=== PATIENT | female | born 1995 | race Caucasian/White ===

== ENCOUNTER → 2016-11-14 | Outpatient (CLI) | payer MEDICAID, OTHER ==
[2016-11-14 15:07] LABS: BASO % 0.8 % (0.0-1.0); EOS # 0.1 K/mm3 (0.0-0.50); EOS % 4.3 % (0.0-3.0); LARGE UNSTAINED CELL # 0.1 K/mm3 (0.0-0.4); LARGE UNSTAINED CELL % 4.6 % (0.0-4.0); LYMPH # 1.2 K/mm3 (1.5-6.5); LYMPH % 41.1 % (24.0-44.0); MEAN CORPUSCULAR HEMOGLOBIN 32.1 pg (27.0-33.0); MEAN CORPUSCULAR HGB CONC 33.6 g/dl (32.0-36.5); MEAN CORPUSCULAR VOLUME 95.6 fl (80.0-96.0); MONO # 0.2 K/mm3 (0.0-0.8); MONO % 8.2 % (0.0-5.0); NEUTROPHILS # 1.2 K/mm3 (1.8-7.7); NEUTROPHILS % 41.1 % (36.0-66.0); PLATELET COUNT, AUTOMATED 216 k/mm3 (150-450); RED CELL DISTRIBUTION WIDTH 12.7 % (11.5-14.5)
[2016-11-14 15:10] LABS: ALBUMIN 3.6 GM/DL (3.2-5.2); ALBUMIN/GLOBULIN RATIO 1.38 (1.00-1.93); ALKALINE PHOSPHATASE 113 U/L (45-117); ALT/SGPT 42 U/L (12-78); ANION GAP 9 MEQ/L (8-16); AST/SGOT 26 U/L (15-37); BILIRUBIN,TOTAL 0.2 MG/DL (0.2-1.0); BLOOD UREA NITROGEN 20 MG/DL (7-18); CALCIUM LEVEL 8.2 MG/DL (8.5-10.1); CARBON DIOXIDE LEVEL 25 MEQ/L (21-32); CHLORIDE LEVEL 106 MEQ/L (98-107); CREATININE FOR GFR 0.78 MG/DL (0.55-1.02); GLOMERULAR FILTRATION RATE > 60.0 (>60); GLUCOSE, FASTING 94 MG/DL (70-105); POTASSIUM SERUM 4.2 MEQ/L (3.5-5.1); SODIUM LEVEL 140 MEQ/L (136-145); TOTAL PROTEIN 6.2 GM/DL (6.4-8.2)
== END ==
LOC: M LAB 13:32
PROVIDERS: ATTEND Nurse Practitioner Family
DX: Z00.00 Encounter for general adult medical examination without abnormal findings (principal)

== ENCOUNTER → 2016-12-13 | Outpatient (REF) | payer OTHER ==
[2016-12-14 09:57] LABS: HEPATITIS B SURFACE ANTIBODY NEGATIVE (POSITIVE)
== END ==
LOC: M SFHCPLAZ 09:34
PROVIDERS: ATTEND Internal Medicine Infectious Disease
DX: B18.2 Chronic viral hepatitis C (principal)

== ENCOUNTER 2016-12-30 09:56 | Emergency (ER) | payer OTHER ==
[~2016-12-30] VITALS: Ht 162.6 cm; Wt 75.1 kg
[2016-12-30 09:57] VITALS: BP 111/59
[2016-12-30] MEDS ORDERED: SUBO2MIS PO (10:08)
== END 2016-12-30 10:45 | disposition home or self-care (01) ==
LOC: M ED 09:56
DX: S00.93XA Contusion of unspecified part of head, initial encounter (principal); W22.8XXA Striking against or struck by other objects, initial encounter; Y92.099 Unspecified place in other non-institutional residence as the place of occurrence of the external cause; Y93.9 Activity, unspecified; Y99.9 Unspecified external cause status; F41.9 Anxiety disorder, unspecified; F32.9 Major depressive disorder, single episode, unspecified; F90.9 Attention-deficit hyperactivity disorder, unspecified type; Z86.19 Personal history of other infectious and parasitic diseases; Z88.8 Allergy status to other drugs, medicaments and biological substances

== ENCOUNTER → 2017-01-17 | Outpatient (CLI) | payer OTHER ==
[~2017-01-17] MED LIST: BUPR10TASR PO; CALC500C8 PO; CELE40TA PO; GABA-283 PO; PANT40TA2; SUBO2MIS PO; ZEPATIER; implanon
[2017-01-17 10:11] LABS: ANION GAP 7 MEQ/L (8-16); BLOOD UREA NITROGEN 20 MG/DL (7-18); CALCIUM LEVEL 8.8 MG/DL (8.5-10.1); CARBON DIOXIDE LEVEL 26 MEQ/L (21-32); CHLORIDE LEVEL 105 MEQ/L (98-107); CREATININE FOR GFR 0.73 MG/DL (0.55-1.02); GLOMERULAR FILTRATION RATE > 60.0 (>60); GLUCOSE, FASTING 97 MG/DL (70-105); POTASSIUM SERUM 4.3 MEQ/L (3.5-5.1); SODIUM LEVEL 138 MEQ/L (136-145)
== END ==
LOC: M LAB 09:08
PROVIDERS: ATTEND Nurse Practitioner Family
DX: E83.51 Hypocalcemia (principal)

== ENCOUNTER → 2017-02-09 | Outpatient (REF) | payer OTHER ==
[2017-02-09 13:18] LABS: ALBUMIN 3.9 GM/DL (3.2-5.2); ALBUMIN/GLOBULIN RATIO 1.3 (1.00-1.93); BILIRUBIN,DIRECT 0.1 MG/DL (0.0-0.2); BILIRUBIN,TOTAL 0.4 MG/DL (0.2-1.0); TOTAL PROTEIN 6.9 GM/DL (6.4-8.2)
[2017-02-13 10:09] LABS: HEPATITIS C QUANTITATION HCV Not Detected IU/mL (.)
== END ==
LOC: M SFHCPLAZ 08:58
PROVIDERS: ATTEND Internal Medicine Infectious Disease
DX: B18.2 Chronic viral hepatitis C (principal)

== ENCOUNTER → 2017-02-24 | Outpatient (REF) | payer OTHER ==
[2017-02-24 14:16] LABS: ALBUMIN 3.9 GM/DL (3.2-5.2); ALBUMIN/GLOBULIN RATIO 1.34 (1.00-1.93); ALKALINE PHOSPHATASE 122 U/L (45-117); ALT/SGPT 32 U/L (12-78); AST/SGOT 25 U/L (15-37); BILIRUBIN,DIRECT < 0.1 MG/DL (0.0-0.2); BILIRUBIN,TOTAL 0.4 MG/DL (0.2-1.0); TOTAL PROTEIN 6.8 GM/DL (6.4-8.2)
[2017-03-01 14:17] LABS: HEPATITIS C QUANTITATION HCV Not Detected IU/mL (.)
== END ==
LOC: M SFHCPLAZ 10:41
PROVIDERS: ATTEND Internal Medicine Infectious Disease
DX: B18.2 Chronic viral hepatitis C (principal)

== ENCOUNTER 2017-03-15 19:33 | Emergency (ER) | payer OTHER ==
[~2017-03-15] VITALS: Ht 162.6 cm; Wt 77.3 kg
[~2017-03-15 19:33] MED LIST changes: -BUPR10TASR PO; -CALC500C8 PO; -CELE40TA PO; -GABA-283 PO; -PANT40TA2; -ZEPATIER; -implanon
[2017-03-15] MEDS ORDERED: GABA-283 PO (20:16)
[2017-03-15] MEDS ORDERED: CELE40TA PO (20:16)
[2017-03-15] MEDS ORDERED: PANT40TA2 (20:16)
[2017-03-15] MEDS ORDERED: CALC500C8 PO (20:16)
[2017-03-15] MEDS ORDERED: implanon (20:16)
[2017-03-15] MEDS ORDERED: BUPR10TASR PO (20:16)
[2017-03-15] MEDS ORDERED: ZEPATIER (20:16)
[2017-03-15] MEDS ORDERED: IBUPROFEN 800 MG TAB PO ONE (21:15)
[2017-03-15 21:16] VITALS: BP 105/62
== END 2017-03-15 21:17 | disposition home or self-care (01) ==
LOC: M ED 19:33
DX: R06.02 Shortness of breath (principal); T65.891A Toxic effect of other specified substances, accidental (unintentional), initial encounter; Y92.9 Unspecified place or not applicable; Y93.9 Activity, unspecified; Z86.19 Personal history of other infectious and parasitic diseases; F41.9 Anxiety disorder, unspecified; F32.9 Major depressive disorder, single episode, unspecified; Z87.891 Personal history of nicotine dependence; Z79.899 Other long term (current) drug therapy; Z88.8 Allergy status to other drugs, medicaments and biological substances

== ENCOUNTER 2017-04-05 18:25 | Emergency (ER) | payer OTHER ==
[~2017-04-05] VITALS: Ht 162.6 cm; Wt 76.2 kg
[2017-04-05 18:25] VITALS: BP 127/83
[~2017-04-05 18:25] MED LIST changes: +BUPR10TASR PO; +CALC500C8 PO; +CELE40TA PO; +GABA-283 PO; +PANT40TA2; +ZEPATIER; +implanon
== END 2017-04-05 21:02 | disposition left against medical advice (07) ==
LOC: M ED 18:25
DX: R07.0 Pain in throat (principal); Z53.21 Procedure and treatment not carried out due to patient leaving prior to being seen by health care provider

== ENCOUNTER → 2017-04-06 | Outpatient (REF) | payer OTHER | LOC: M SFHCLERA 19:37 | PROVIDERS: ATTEND Physician Assistant | DX: J02.9 Acute pharyngitis, unspecified (principal) ==

== ENCOUNTER → 2017-04-25 | Outpatient (REF) | payer OTHER ==
[2017-04-25 12:03] LABS: ALBUMIN 3.8 GM/DL (3.2-5.2); ALBUMIN/GLOBULIN RATIO 1.27 (1.00-1.93); BILIRUBIN,DIRECT 0.2 MG/DL (0.0-0.2); BILIRUBIN,TOTAL 0.5 MG/DL (0.2-1.0); TOTAL PROTEIN 6.8 GM/DL (6.4-8.2)
[2017-04-27 00:10] LABS: HEPATITIS C QUANTITATION HCV Not Detected IU/mL (.)
== END ==
LOC: M SFHCPLAZ 10:12
PROVIDERS: ATTEND Internal Medicine Infectious Disease
DX: B18.2 Chronic viral hepatitis C (principal)

== ENCOUNTER → 2017-05-17 | Outpatient (CLI) | payer OTHER ==
[2017-05-17 12:22] LABS: BASO % 0.9 % (0.0-1.0); EOS # 0.1 10^3/uL (0.0-0.50); LYMPH # 1.5 10^3/uL (1.5-6.5); LYMPH % 44.7 % (24.0-44.0); MEAN CORPUSCULAR HEMOGLOBIN 29.8 pg (27.0-33.0); MEAN CORPUSCULAR HGB CONC 32.7 g/dl (32.0-36.5); MEAN CORPUSCULAR VOLUME 91.1 fl (80.0-96.0); MONO # 0.5 10^3/uL (0.0-0.8); NEUTROPHILS # 1.2 10^3/uL (1.8-7.7); NEUTROPHILS % 37.4 % (36.0-66.0); PLATELET COUNT, AUTOMATED 180 10^3/uL (150-450); RED CELL DISTRIBUTION WIDTH 12.7 % (11.5-14.5); WHITE BLOOD COUNT 3.3 10^3/uL (4.0-10.0)
[2017-05-17 13:24] LABS: VITAMIN B12 LEVEL 381 PG/ML (247-911)
[2017-05-17 13:28] LABS: ALBUMIN 3.8 GM/DL (3.2-5.2); ALBUMIN/GLOBULIN RATIO 1.36 (1.00-1.93); ALKALINE PHOSPHATASE 102 U/L (45-117); ALT/SGPT 21 U/L (12-78); ANION GAP 6 MEQ/L (8-16); AST/SGOT 15 U/L (7-37); BILIRUBIN,TOTAL 0.3 MG/DL (0.2-1.0); BLOOD UREA NITROGEN 20 MG/DL (7-18); CALCIUM LEVEL 8.7 MG/DL (8.5-10.1); CARBON DIOXIDE LEVEL 30 MEQ/L (21-32); CHLORIDE LEVEL 106 MEQ/L (98-107); CREATININE FOR GFR 0.85 MG/DL (0.55-1.02); GLOMERULAR FILTRATION RATE > 60.0 (>60); GLUCOSE, FASTING 76 MG/DL (70-105); POTASSIUM SERUM 4.6 MEQ/L (3.5-5.1); SODIUM LEVEL 142 MEQ/L (136-145); TOTAL PROTEIN 6.6 GM/DL (6.4-8.2)
== END ==
LOC: M LAB 11:46
PROVIDERS: ATTEND Nurse Practitioner Family
DX: F11.20 Opioid dependence, uncomplicated (principal)

== ENCOUNTER → 2017-06-07 | Outpatient (CLI) | payer OTHER | LOC: M SLEEP HO 10:09 | PROVIDERS: ATTEND Nurse Practitioner Adult Health | DX: G47.33 Obstructive sleep apnea (adult) (pediatric) (principal) ==

== ENCOUNTER 2017-06-16 22:28 | Observation (INO) | payer OTHER ==
[~2017-06-16] VITALS: Ht 162.6 cm; Wt 76.9 kg
[~2017-06-16 22:28] MED LIST changes: -PANT40TA2; +PANT40TA2 PO; -SUBO2MIS PO; +SUBO2MIS SL
[2017-06-16 23:14] LABS: BASO % 0.5 % (0.0-1.0); EOS # 0.1 10^3/uL (0.0-0.50); EOS % 3.4 % (0.0-3.0); IMMATURE GRANULOCYTE % 0.3 % (0-0); LYMPH # 1.8 10^3/uL (1.5-6.5); LYMPH % 45.5 % (24.0-44.0); MEAN CORPUSCULAR HEMOGLOBIN 30.6 pg (27.0-33.0); MEAN CORPUSCULAR HGB CONC 33.1 g/dl (32.0-36.5); MEAN CORPUSCULAR VOLUME 92.6 fl (80.0-96.0); MONO # 0.5 10^3/uL (0.0-0.8); MONO % 13.5 % (0.0-5.0); NEUTROPHILS # 1.4 10^3/uL (1.8-7.7); NEUTROPHILS % 36.8 % (36.0-66.0); PLATELET COUNT, AUTOMATED 155 10^3/uL (150-450); RED CELL DISTRIBUTION WIDTH 12.2 % (11.5-14.5); WHITE BLOOD COUNT 3.9 10^3/uL (4.0-10.0)
[2017-06-16] MEDS ORDERED: GABA-282 PO (23:31)
[2017-06-16] MEDS ORDERED: BUPR200T PO (23:31)
[2017-06-16] MEDS ORDERED: OYST500T50 PO (23:31)
[2017-06-16] MEDS ORDERED: NICO4GUM2 PO (23:35)
[2017-06-16] MEDS ORDERED: IBUP1TAB6 PO (23:35)
[2017-06-16] MEDS ORDERED: BUSP10TA PO (23:35)
[2017-06-16] MEDS ORDERED: SKYL13.5 IU (23:35)
[2017-06-16] MEDS ORDERED: MELA1TAB15 PO (23:35)
[2017-06-16 23:58] LABS: ALBUMIN 3.9 GM/DL (3.2-5.2); ALKALINE PHOSPHATASE 97 U/L (45-117); ALT/SGPT 22 U/L (12-78); ANION GAP 7 MEQ/L (8-16); AST/SGOT 22 U/L (7-37); BILIRUBIN,DIRECT < 0.1 MG/DL (0.0-0.2); BILIRUBIN,TOTAL 0.2 MG/DL (0.2-1.0); BLOOD UREA NITROGEN 18 MG/DL (7-18); CALCIUM LEVEL 8.5 MG/DL (8.5-10.1); CARBON DIOXIDE LEVEL 29 MEQ/L (21-32); CHLORIDE LEVEL 106 MEQ/L (98-107); GLOMERULAR FILTRATION RATE > 60.0 (>60); GLUCOSE, FASTING 88 MG/DL (70-105); POTASSIUM SERUM 3.7 MEQ/L (3.5-5.1); SODIUM LEVEL 142 MEQ/L (136-145); TOTAL PROTEIN 6.5 GM/DL (6.4-8.2)
[2017-06-17] MEDS ORDERED: NICOTINE POLACRILEX 2 MG GUM PO PRN (00:45)
[2017-06-17] MEDS ORDERED: ONDANSETRON 4MG/2ML VIAL (J2405) IV PRN (00:45)
[2017-06-17] MEDS ORDERED: ACETAMINOPHEN TAB 650MG DOSE (2X325MG) PO PRN (00:45)
[2017-06-17] MEDS ORDERED: IBUPROFEN 600 MG TAB PO PRN (00:45)
[2017-06-17 02:15] VITALS: BP 128/73
[2017-06-17 02:58] LABS: METHADONE URINE NEGATIVE (NEGATIVE)
[2017-06-17 05:30] VITALS: BP 105/55
--- NOTE | 2017-06-17 07:05 | HPE ---
DATE OF ADMISSION: 06/17/2017 PRIMARY CARE PROVIDER: Larissa You CHIEF COMPLAINT: Inadvertently taking an extra Wellbutrin. SUMMARY OF PRESENTATION: This is a 21-year-old who lives at [facility]. She has her medications administered to her. She was accidentally given an extra Wellbutrin, she normally takes 200 in the morning and 200 at night, was accidentally given 400 at night resulting in a total dose of the day of 600. She is currently feeling well with no complaints of chest pain, shortness of breath. She is thirsty. She was feeling well recently. She did have a carpal tunnel repair done on Monday the at the [facility] here in [place]. PAST SURGICAL HISTORY: Notable for: Carpal tunnel repair. PAST MEDICAL HISTORY: Notable for: 1. Gastroesophageal reflux disease (GERD). 2. Opioid addiction. 3. Attention deficit hyperactivity disorder (ADHD). 4. Hepatitis C. SOCIAL HISTORY: Notable for: Quitting smoking a month ago, still using nicotine gum. She is not using any alcohol. FAMILY HISTORY: Notable for: A brother for diabetes. A father who has hypertension at age 53. A mother who is 51 alive and well. REVIEW OF SYSTEMS: Notable for: No runny nose. No sore throat. No headache. No visual changes. No chest pain or shortness of breath. Exercise tolerance involves walking a flight of stairs without difficulty. No abdominal pain. No change in bowel or bladder habits. Otherwise unremarkable. LABORATORY DATA: White cell count 2.9, hemoglobin 12.0 and platelets of 155, TSH is 3.89, AST 22, ALT 22, creatinine 0.9. Toxicology screen is negative. EEG shows nonspecific changes. A normal QTc. ASSESSMENT: As follows: This is a 21-year-old with inadvertent drug administration unintentional overdose of Wellbutrin. PLAN: As follows: 1. Overdose. Patient should be monitored on telemetry. Watch for seizures. Can likely be discharged early tomorrow afternoon if she is seizures free with the plan to hold her dosing of Wellbutrin tomorrow 2. Patient has a history of hepatitis C. 3. Patient has recent carpal tunnel repair. Wound on her right wrist is clean, dry, and intact with no evidence of infection. 4. Patient has a history of tobacco use, currently not smoking, on nicotine replacement therapy which is continued. 5. Patient has a history of opioid dependency. Continue her on home dosing Suboxone. 6. Patient has history of anxiety. Continue her on her home medications. 7. Deep venous thrombosis (DVT) prophylaxis is not necessary or indicated in this patient.
[2017-06-17 08:00] VITALS: BP_SYST 105; BP_SYST 119; BP_DIAS 65
[2017-06-17] MEDS ORDERED: busPIRone 10 MG TAB PO SCH (09:00)
[2017-06-17] MEDS ORDERED: PANTOPRAZOLE 40MG TAB (PROTONIX) PO SCH (09:00)
[2017-06-17] MEDS ORDERED: GABAPENTIN 300 MG CAP PO SCH (09:00)
[2017-06-17] MEDS ORDERED: BUPRENORPHINE/NALOXONE 2-0.5MG SUBLINGUAL TABLET(SUBOXONE) SL SCH (09:00)
--- NOTE | 2017-06-17 14:57 | ECGEPIP ---
Stationary ECG Study [facility] - ED Test Date: 2017-06-16 Pat Name: KIMBER PARIKH Department: Room: [place] [address] Gender: F Title Department Manager: GenaoB: 1995 Requested By: BUD Graham Order Number: [id number] Reading MD: Ifrah Espinal Measurements Intervals [place] Rate: 103 P: 56 TN: 137 QRS: 44 QRSD: 90 T: 15 QT: 347 QTc: 456 Interpretive Statements SINUS TACHYCARDIA NONSPECIFIC T-WAVE ABNORMALITY ABNORMAL RHYTHM ECG NO PRIOR FOR COMPARISON Electronically Signed On 06-17-2017 14:57:12 EST by Ifrah Espinal
[2017-06-17] MEDS ORDERED: CitaloPRAM (CeleXA) 20 MG TAB PO SCH (21:00)
== END 2017-06-17 13:10 | disposition other institution (70) ==
LOC: M ED 22:28 → M ED INP 06-17 00:43 → M PCU 06-17 02:11
PROVIDERS: ADMIT Internal Medicine; ATTEND Internal Medicine
DX: T43.591A Poisoning by other antipsychotics and neuroleptics, accidental (unintentional), initial encounter (principal); K21.9 Gastro-esophageal reflux disease without esophagitis; F90.9 Attention-deficit hyperactivity disorder, unspecified type; B18.2 Chronic viral hepatitis C; F41.9 Anxiety disorder, unspecified; F11.10 Opioid abuse, uncomplicated; Y92.9 Unspecified place or not applicable; Z87.891 Personal history of nicotine dependence; Z79.899 Other long term (current) drug therapy

== ENCOUNTER → 2017-06-22 | Outpatient (CLI) | payer OTHER ==
[2017-06-22 10:09] LABS: BASO % 0.6 % (0.0-1.0); EOS # 0.2 10^3/uL (0.0-0.50); EOS % 5.8 % (0.0-3.0); IMMATURE GRANULOCYTE % 0.3 % (0-0); LYMPH # 0.9 10^3/uL (1.5-6.5); LYMPH % 27.1 % (24.0-44.0); MEAN CORPUSCULAR HEMOGLOBIN 31.2 pg (27.0-33.0); MEAN CORPUSCULAR HGB CONC 33.2 g/dl (32.0-36.5); MONO # 0.5 10^3/uL (0.0-0.8); NEUTROPHILS # 1.7 10^3/uL (1.8-7.7); NEUTROPHILS % 52.2 % (36.0-66.0); PLATELET COUNT, AUTOMATED 152 10^3/uL (150-450); RED CELL DISTRIBUTION WIDTH 12.3 % (11.5-14.5); WHITE BLOOD COUNT 3.3 10^3/uL (4.0-10.0)
[2017-06-22 10:34] LABS: ALBUMIN 3.6 GM/DL (3.2-5.2); ALKALINE PHOSPHATASE 100 U/L (45-117); ALT/SGPT 20 U/L (12-78); ANION GAP 7 MEQ/L (8-16); AST/SGOT 20 U/L (7-37); BILIRUBIN,TOTAL 0.3 MG/DL (0.2-1.0); BLOOD UREA NITROGEN 23 MG/DL (7-18); CALCIUM LEVEL 8.3 MG/DL (8.5-10.1); CARBON DIOXIDE LEVEL 30 MEQ/L (21-32); CHLORIDE LEVEL 106 MEQ/L (98-107); CREATININE FOR GFR 0.84 MG/DL (0.55-1.02); GLOMERULAR FILTRATION RATE > 60.0 (>60); GLUCOSE, FASTING 73 MG/DL (70-105); POTASSIUM SERUM 4.6 MEQ/L (3.5-5.1); SODIUM LEVEL 143 MEQ/L (136-145); TOTAL PROTEIN 6.6 GM/DL (6.4-8.2)
[2017-06-27 10:08] LABS: HCV RNA NAA QUALITATIVE Negative (Negative)
== END ==
LOC: M LAB 09:12
DX: Z79.891 Long term (current) use of opiate analgesic (principal)
CPT/HCPCS: 80053

== ENCOUNTER 2017-07-16 21:27 | Emergency (ER) | payer OTHER | END 2017-07-16 22:51 | disposition home or self-care (01) | LOC: M ED 21:27 | DX: T43.291A Poisoning by other antidepressants, accidental (unintentional), initial encounter (principal); Y92.098 Other place in other non-institutional residence as the place of occurrence of the external cause; F41.9 Anxiety disorder, unspecified; K21.9 Gastro-esophageal reflux disease without esophagitis; B19.20 Unspecified viral hepatitis C without hepatic coma; F11.10 Opioid abuse, uncomplicated; Z88.8 Allergy status to other drugs, medicaments and biological substances; Z79.899 Other long term (current) drug therapy | CPT/HCPCS: 93005 ==